=== PATIENT | male | born 1980 | race Hispanic/Latino ===

== ENCOUNTER → 2017-01-08 | Outpatient (CLI) | payer SELFPAY ==
--- NOTE | 2017-01-11 09:11 | DI ---
XR TIB/FIB 2VW,01/08/2017 1:16 PM: Clinical History: Left lower leg contusion. Previous Exam: None at this facility. Findings: AP and lateral views of the left tibia and fibula are obtained, and demonstrate anatomic alignment wi thout fractures. Surrounding soft tissues are unremarkable. Impression: No bony abnormality
== END ==
LOC: MOB RAD 13:09
DX: S80.12XA Contusion of left lower leg, initial encounter (principal)
CPT/HCPCS: 73590